=== PATIENT | male | born 1940 | race Caucasian/White ===

== ENCOUNTER 2016-07-05 00:13 | Day surgery (SDC) | payer MEDICARE, OTHER ==
[~2016-07-05 00:13] MED LIST: ASPI-973 PO; DIGO125T73 PO; FUR20 PO; LIP40 PO; LOSA25TA21 PO; METO-272 PO; MULT-1018 PO; TAMS0.4C29 PO; UBID1CAP52 PO; VARD20TA30 PO
[2016-07-05] MEDS ORDERED: Lactated Ringer's 1,000 ML IV SCH (05:00)
--- NOTE | 2016-07-05 12:15 | NUR ---
Patient admitted for cardioversion with Dr Alfredo. Pt found to be in sinus bradycardia once attached to monitor. 12 lead ekg completed and faxed to Dr Alfredo. Dr Alfredo also paged and in agreement that procedure is to be cancelled. He will see patient at 1400 for discussion regarding medication adjustment. pt informed, given voucher to have lunch (ok'd with physician to feed pt), and told to return to dept by 14:00.
[2016-07-05] MEDS ORDERED: AMIO200T PO (12:45)
[2016-07-05] MEDS ORDERED: WARF4TAB6 PO (12:45)
--- NOTE | 2016-07-05 14:30 | NUR ---
Pt has spoken with Dr Alfredo. Sophie Melissa R.N. has updated patient's medication list, patient left ambulatory.
== END 2016-07-05 23:59 | disposition home or self-care (01) ==
LOC: SOUO 00:13
PROVIDERS: ATTEND Internal Medicine Cardiovascular Disease
DX: I48.1 Persistent atrial fibrillation (principal); Z53.8 Procedure and treatment not carried out for other reasons